=== PATIENT | female | born 1975 | race African-American/Black ===

== ENCOUNTER 2016-07-02 11:02 | Day surgery (SDC) | payer BC ==
--- NOTE | ~2016-07-02 | EGD ---
EGD REPORT [facility] [address] [place]. [address] NAME: SYLWIA MALDONADO : [birth year] STATUS : REG [facility]#: [id number] AGE: 41 ADM/REG DATE : 07/02/16 MR#: [id number] REPORT SERV DATE: 07/02/16 DICTATED BY: NOMI CABALLERO DATE: 07/02/16 REPORT STATUS : Draft [facility] DATE: 07/02/16 Endoscopy Center Patient Name: Sylwia Maldonado Date of : 1975 Attending MD: NOMI CABALLERO MD Procedure Date No Time: 07/02/2016 Procedure: Upper GI endoscopy Indications: Hematochezia, Crohn's disease Referring MD: Ruthy Rankin Medicines: Monitored Anesthesia Care Complications: No immediate complications. Procedure: Pre-Anesthesia Assessment: - ASA Grade Assessment: III - A patient with severe systemic disease. After obtaining informed consent, the endoscope was passed under direct vision. Throughout the procedure, the patient's blood pressure, pulse, and oxygen saturations were monitored continuously. The GIF [id number] was introduced through the mouth, and advanced to the second part of duodenum. The upper GI endoscopy was accomplished without difficulty. The patient tolerated the procedure well. Findings: The examined esophagus was normal. Patchy moderate inflammation characterized by congestion (edema) and erythema was found in the gastric body. Biopsies were taken with a cold forceps for histology. A few 5 to 10 mm pedunculated and sessile polyps with no stigmata of recent bleeding were found in the gastric body. Biopsies were taken with a cold forceps for histology. Patchy mild inflammation characterized by erythema was found in the gastric antrum. Biopsies were taken with a cold forceps for histology. The duodenal bulb and 2nd part of the duodenum were normal. Impression: - Normal esophagus. - Gastritis. Biopsied. - A few gastric polyps. Biopsied. - Gastritis. Biopsied. - Normal duodenal bulb and 2nd part of the duodenum. Recommendation: - Patient has a contact number available for emergencies. The signs and symptoms of potential delayed complications were discussed with the patient. Return to normal activities tomorrow. Written discharge EGD REPORT [address] [address] NAME: SYLWIA MALDONADO : [birth year] STATUS : REG [facility] PAT#: [id number] AGE: 41 ADM/REG DATE : 07/02/16 MR#: [id number] REPORT SERV DATE: 07/02/16 DICTATED BY: NOMI CABALLERO DATE: 07/02/16 REPORT STATUS : Draft TRANSCRIBED BY: [employer] DATE: 07/02/16 instructions were provided to the patient. - Regular diet. - Await pathology results. Procedure Code(s): --- Professional --- 69321, Esophagogastroduodenoscopy, flexible, transoral; with biopsy, single or multiple Diagnosis Code(s): --- Professional --- K50.90, Crohn's disease, unspecified, without complications K29.70, Gastritis, unspecified, without bleeding K31.7, Polyp of stomach and duodenum K92.1, Melena CPT copyright 2013 [employer]. All rights reserved. The codes documented in this report are preliminary and upon electrogalvanizing machine operator review may be revised to meet current compliance requirements. NOMI CABALLERO MD 07/02/2016 1:39 PM This report has been signed electronically. Number of Addenda: 0 Note Initiated On: 07/02/2016 1:24 PM Scope Withdrawal Time 0 hours 0 minutes 0 seconds [address] [place] [id number]
--- NOTE | ~2016-07-02 | EGD ---
EGD REPORT [facility] [address] [place]. [address] NAME: SYLWIA MALDONADO : [birth year] STATUS : REG [facility]#: [id number] AGE: 41 ADM/REG DATE : 07/02/16 MR#: [id number] REPORT SERV DATE: 07/02/16 DICTATED BY: NOMI CABALLERO DATE: 07/02/16 REPORT STATUS : Draft TRANSCRIBED BY: [facility] DATE: 07/02/16 Endoscopy Center Patient Name: Sylwia Maldonado Date of : 1975 Attending MD: NOMI CABALLERO MD Procedure Date No Time: 07/02/2016 Procedure: Colonoscopy Indications: Diarrhea, Rectal bleeding, Crohn's disease of the small bowel Referring MD: Ruthy Rankin Medicines: Monitored Anesthesia Care Complications: No immediate complications. Procedure: Pre-Anesthesia Assessment: - ASA Grade Assessment: III - A patient with severe systemic disease. After I obtained informed consent, the scope was passed under direct vision. Throughout the procedure, the patient's blood pressure, pulse, and oxygen saturations were monitored continuously. The CF [id number] was introduced through the anus and advanced to the terminal ileum, with identification of the appendiceal orifice and IC valve. The colonoscopy was performed without difficulty. The patient tolerated the procedure well. The quality of the bowel preparation was good. Findings: The digital rectal exam was abnormal. Findings include hemorrhoids. The terminal ileum appeared normal. Biopsies were taken with a cold forceps for histology. Localized inflammation, moderate in severity and characterized by congestion (edema), erosions, erythema, pseudopolyps and shallow ulcerations was found in the ileocecal valve. This was on the small bowel side of the ICV. ICV appeared edematous. Biopsies were taken with a cold forceps for histology. The ascending colon appeared normal. Biopsies were taken with a cold forceps for histology. The transverse colon appeared normal. Biopsies were taken with a cold forceps for histology. The sigmoid colon and descending colon appeared normal. Biopsies were taken with a cold forceps for histology. The rectum appeared normal. Biopsies were taken with a cold forceps for histology. Hemorrhoids were found during endoscopy and were moderate. Impression: - Hemorrhoids found on digital rectal exam. EGD REPORT [place] [id number] [facility] [place]. [address] NAME: SYLWIA MALDONADO : [birth year] STATUS : REG [facility] PAT#: [id number] AGE: 41 ADM/REG DATE : 07/02/16 MR#: [id number] REPORT SERV DATE: 07/02/16 DICTATED BY: NOMI CABALLERO DATE: 07/02/16 REPORT STATUS : Draft TRANSCRIBED BY: [employer] DATE: 07/02/16 - The examined portion of the ileum was normal. Biopsied. - Crohn's disease with ileitis. Biopsied. - The ascending colon is normal. Biopsied. - The transverse colon is normal. Biopsied. - The sigmoid colon and descending colon are normal. Biopsied. - The rectum is normal. Biopsied. - Hemorrhoids. Recommendation: - Patient has a contact number available for emergencies. The signs and symptoms of potential delayed complications were discussed with the patient. Return to normal activities tomorrow. Written discharge instructions were provided to the patient. - Regular diet. - Continue present medications. - Await pathology results. - Discharge patient to home. - Return to GI clinic in 2 weeks. Procedure Code(s): --- Professional --- 01165, Colonoscopy, flexible, proximal to splenic flexure; with biopsy, single or multiple Diagnosis Code(s): --- Professional --- K64.9, Unspecified hemorrhoids K50.011, Crohn's disease of small intestine with rectal bleeding R19.7, Diarrhea, unspecified CPT copyright 2013 [employer]. All rights reserved. The codes documented in this report are preliminary and upon meeting planner review may be revised to meet current compliance requirements. NOMI CABALLERO MD 07/02/2016 2:10 PM This report has been signed electronically. Number of Addenda: 0 Note Initiated On: 07/02/2016 1:25 PM Scope Withdrawal Time 0 hours 11 minutes 42 seconds [address] [address]
[~2016-07-02 11:02] MED LIST: ACET500CAP PO; ADDERALL XR20 MG PO; ADDERALL XR5 MG PO; ADDERALL5 MG PO; ATV1 PO; B 12; BIRTHCONTROL; CIMZIA SC; CLARIT10 PO; D 5000 PO; DSS PO; EZFE 200200 MG PO; FISH-EPA1000 MG PO; GLUCCHONDR PO; LEXAPRO20 PO; LO/OVRAL PO; MOBIC15 MG PO; MULTIPLE VIT PO; NOR50 PO; NORV5 PO; OTC IRON PO; PLAQ200B PO; PRILO PO; PROAIR HFA INH; PROVIGIL2 PO; PROZAC40 MG PO; RANITIDINE300 MG PO; RITALIN10; SAS500 PO; SYN075 PO; VITC500 PO; XYREM; ZOVIA OR
== END 2016-07-02 23:59 | disposition home or self-care (01) ==
LOC: DMU 11:02
PROVIDERS: Internal Medicine Gastroenterology
PROC: 0DBP8ZX Excision of Rectum, Via Natural or Artificial Opening Endoscopic, Diagnostic (ICD-10-PCS; 2016-07-02)
PROC: 0DBN8ZX Excision of Sigmoid Colon, Via Natural or Artificial Opening Endoscopic, Diagnostic (ICD-10-PCS; 2016-07-02)
PROC: 0DBL8ZX Excision of Transverse Colon, Via Natural or Artificial Opening Endoscopic, Diagnostic (ICD-10-PCS; 2016-07-02)
PROC: 0DBK8ZX Excision of Ascending Colon, Via Natural or Artificial Opening Endoscopic, Diagnostic (ICD-10-PCS; 2016-07-02)
PROC: 0DB78ZX Excision of Stomach, Pylorus, Via Natural or Artificial Opening Endoscopic, Diagnostic (ICD-10-PCS; 2016-07-02)
PROC: 0DB68ZX Excision of Stomach, Via Natural or Artificial Opening Endoscopic, Diagnostic (ICD-10-PCS; 2016-07-02)
PROC: 0DBB8ZX Excision of Ileum, Via Natural or Artificial Opening Endoscopic, Diagnostic (ICD-10-PCS; principal; 2016-07-02 13:00)
PROC: 0DBC8ZX Excision of Ileocecal Valve, Via Natural or Artificial Opening Endoscopic, Diagnostic (ICD-10-PCS; 2016-07-02 13:00)
DX: K29.50 Unspecified chronic gastritis without bleeding (principal); K31.7 Polyp of stomach and duodenum; K64.9 Unspecified hemorrhoids; K52.9 Noninfective gastroenteritis and colitis, unspecified; K50.90 Crohn's disease, unspecified, without complications; I10 Essential (primary) hypertension; F41.9 Anxiety disorder, unspecified; J45.909 Unspecified asthma, uncomplicated; K21.9 Gastro-esophageal reflux disease without esophagitis; M19.90 Unspecified osteoarthritis, unspecified site; E03.9 Hypothyroidism, unspecified; D64.9 Anemia, unspecified; Z88.0 Allergy status to penicillin; Z88.8 Allergy status to other drugs, medicaments and biological substances; Z88.5 Allergy status to narcotic agent; Z86.010 Personal history of colon polyps; Z98.890 Other specified postprocedural states
CPT/HCPCS: 36247; 37243; 84703; 88305